=== PATIENT | male | born 1965 ===

== ENCOUNTER 2016-10-02 07:52 | Day surgery (SDC) | payer MEDICAID ==
[2016-09-27 10:16] VITALS: BMI 26.6
[2016-10-02] MEDS ORDERED: Lactated Ringer's 1,000 ML IV ONE (09:30)
[2016-10-02] MEDS ORDERED: Lidocaine 1% Inj (20ml) ONE (09:36)
[2016-10-02] MEDS ORDERED: Bupivacaine 0.5% Inj(30mL) ONE (09:36)
[2016-10-02] MEDS ORDERED: Midazolam 2 MG/2 ML VIAL ONE (09:45)
[2016-10-02] MEDS ORDERED: Propofol 10 mg/ml Inj (20 ML) ONE (09:45)
[2016-10-02] MEDS ORDERED: Lidocaine 1% Inj (20ml) IJ ONE (10:17)
--- NOTE | 2016-10-02 10:34 | PCM.SURG1 ---
Surgeon's Initial Post Op Note - Surgeon's Notes Surgeon: Dr. Gifford Mercerizer: Dr. Veronica, Dr. Nava DPM Type of Anesthesia: IV Sedation, Local Anesthesia Administered By: Courtney Pre-Operative Diagnosis: Posterior Neck mass Operative Findings: same Post-Operative Diagnosis: same Operation Performed: Excision of posterior neck mass Specimen/Specimens Removed: posterior neck mass Estimated Blood Loss: EBL {In ML}: 1 Blood Products Given: N/A Drains Used: No Drains Post-Op Condition: Good Date of Surgery/Procedure: 10/02/16 Time of Surgery/Procedure: 10:33
--- NOTE | 2016-10-02 10:35 | CP.SDSHP ---
Same Day Surgery H & P - Allergies Allergies: Allergies No Known Allergies Allergy (Verified 10/02/16 08:11) - Physical Exam Vital Signs: Vital Signs 10/02/16 10/02/16 08:00 08:35 Temperature 97.8 F Pulse Rate 61 61 Respiratory 18 Rate Blood Pressure 107/68 O2 Sat by Pulse 98 Oximetry Short Stay Discharge - Short Stay Discharge Admitting Diagnosis/Reason for Visit: D17.9 Disposition: HOME/ ROUTINE Referrals: Yvan Louie MD [Primary Care Provider] - Additional Instructions (Diet, Activity): F/U in office 1 week. You may shower and resume regular activities.
[2016-10-02] MEDS ORDERED: Lactated Ringer's 1,000 ML IV SCH (10:43)
[2016-10-02 12:20] VITALS: RESP 18; TEMP 98
[2016-10-02 12:43] VITALS: O2SAT 99
[2016-10-02] MEDS ORDERED: Oxycodone/Acetaminophen 5/325 mg Tab PO ONE ×2 (12:43→12:55)
[2016-10-02 13:47] VITALS: BP 102/65; PULSE 66
--- NOTE | 2016-10-02 19:10 | OP ---
PROCEDURE DATE: 10/02/2016 SURGEON: Dr. Gifford. SUPERVISOR HISTOLOGY: Dr. Veronica. ANESTHESIA: IV sedation with local Dr. Cage. PREOPERATIVE DIAGNOSIS: Posterior neck mass. POSTOPERATIVE DIAGNOSIS: Posterior neck mass. PROCEDURE: Excision posterior neck mass. DESCRIPTION OF OPERATION: The patient was placed on the operating table in a prone position. He was given light IV sedation and the posterior neck was prepped and draped in the usual sterile manner. Overlying the midline of approximately C5, a small subcutaneous mass was palpable. The skin overlyin g this was infiltrated with 1% lidocaine and a transverse incision was made. The incision was taken down through the full thickness of skin and upon passing through the full thickness of skin, a small bulging yellow mass was identified with the gross appearance of a lipoma. It had a diameter of appro ximately 4 mm. The mass was freed from surrounding subcutaneous tissue. It was also noted to have a somewhat firm texture and the mass was excised. The site was examined for hemostasis and closure wa s performed with running subcuticular suture of 4-0 Monocryl and Dermabond. The patient tolerated th e procedure well and transferred to the recovery room in stable condition. Estimated blood loss for the procedure was 1 mL. Fidel Gifford MD cc: 58 TT: 10/02/2016 19:09:02 bailey
== END 2016-10-02 14:40 | disposition home or self-care (01) ==
LOC: H.OPSURG 07:52
PROVIDERS: ATTEND Specialist
DX: D17.9 Benign lipomatous neoplasm, unspecified (principal); F17.200 Nicotine dependence, unspecified, uncomplicated; K21.9 Gastro-esophageal reflux disease without esophagitis; M54.5 Low back pain

== ENCOUNTER 2016-12-07 11:09 | Emergency (ER) | payer OTHER, MEDICAID ==
[2016-12-07 11:10] VITALS: BMI 26.6
[2016-12-07 11:14] VITALS: BP 122/79; PULSE 91; RESP 20; TEMP 98; O2SAT 96
[2016-12-07] MEDS ORDERED: Naproxen 500 MG TAB PO STA (11:19)
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
== END 2016-12-07 12:53 | disposition home or self-care (01) ==
LOC: H.ER 11:09
DX: S60.222A Contusion of left hand, initial encounter (principal); V13.0XXA Pedal cycle driver injured in collision with car, pick-up truck or van in nontraffic accident, initial encounter; Y93.55 Activity, bike riding; Y92.9 Unspecified place or not applicable; Z86.59 Personal history of other mental and behavioral disorders

== ENCOUNTER 2016-12-31 16:36 | Emergency (ER) | payer MEDICAID, OTHER ==
[2016-12-31 16:36] VITALS: BMI 27.4
[2016-12-31 16:44] VITALS: BP 121/72; PULSE 71; RESP 18; TEMP 98.4; O2SAT 99
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
== END 2016-12-31 17:48 ==
LOC: H.ER 16:36
DX: M54.9 Dorsalgia, unspecified (principal); G89.29 Other chronic pain; Z65.3 Problems related to other legal circumstances

== ENCOUNTER 2017-03-15 14:36 | Emergency (ER) | payer MEDICAID ==
[2017-03-15 14:36] VITALS: BMI 27.4
[2017-03-15 15:18] VITALS: PULSE 62; RESP 18; O2SAT 98
--- NOTE | 2017-03-15 15:39 | RAD ---
HISTORY: sob COMPARISON: No prior. TECHNIQUE: Chest PA and lateral FINDINGS: LUNGS: No active pulmonary disease. PLEURA: No significant pleural effusion identified. No pneumothorax apparent. CARDIOVASCULAR: Normal. OSSEOUS STRUCTURES: No significant abnormalities. VISUALIZED UPPER ABDOMEN: Normal. OTHER FINDINGS: None. IMPRESSION: No active disease.
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
[2017-03-15 15:50] VITALS: BP 110/70; TEMP 97
== END 2017-03-15 16:10 | disposition home or self-care (01) ==
LOC: H.ER 14:36
DX: J98.01 Acute bronchospasm (principal)